=== PATIENT | female | born 1985 ===

== ENCOUNTER 2022-03-26 11:19 | Outpatient (CLI) | payer OTHER | END 2022-03-26 12:35 | disposition home or self-care (01) | LOC: PRENATAL 11:19 | PROVIDERS: ATTEND Obstetrics & Gynecology Maternal & Fetal Medicine | DX: O35.0XX0 Maternal care for (suspected) central nervous system malformation in fetus, not applicable or unspecified (principal); O35.3XX0 Maternal care for (suspected) damage to fetus from viral disease in mother, not applicable or unspecified; O34.219 Maternal care for unspecified type scar from previous cesarean delivery; Z3A.24 24 weeks gestation of pregnancy ==

== ENCOUNTER 2022-05-20 10:22 | Outpatient (CLI) | payer OTHER | END 2022-05-20 12:15 | disposition home or self-care (01) | LOC: PRENATAL 10:22 | PROVIDERS: ATTEND Obstetrics & Gynecology Maternal & Fetal Medicine | DX: O26.849 Uterine size-date discrepancy, unspecified trimester (principal); O35.9XX0 Maternal care for (suspected) fetal abnormality and damage, unspecified, not applicable or unspecified; O09.529 Supervision of elderly multigravida, unspecified trimester; O34.219 Maternal care for unspecified type scar from previous cesarean delivery; Z3A.32 32 weeks gestation of pregnancy ==

== ENCOUNTER 2022-07-02 08:45 | Inpatient (IN) | payer OTHER ==
[~2022-07-02] VITALS: Ht 172.7 cm; Wt 3.6 kg
[2022-07-08] MEDS ORDERED: PRENATAL + DHA1 EAC1 (08:03)
== END 2022-07-10 14:29 | disposition home or self-care (01) | DRG 785 ==
LOC: OB/GYN 07-08 05:30 → O/R 07-08 05:30 → OB/GYN 07-08 07:00
PROVIDERS: ADMIT Obstetrics & Gynecology; ATTEND Obstetrics & Gynecology
PROC: 0UB70ZZ Excision of Bilateral Fallopian Tubes, Open Approach (ICD-10-PCS; 2022-07-08)
PROC: 4A1HXCZ Monitoring of Products of Conception, Cardiac Rate, External Approach (ICD-10-PCS; 2022-07-08)
PROC: 10D00Z1 Extraction of Products of Conception, Low, Open Approach (ICD-10-PCS; principal; 2022-07-08 07:00)
DX: O36.63X0 Maternal care for excessive fetal growth, third trimester, not applicable or unspecified (principal); O34.211 Maternal care for low transverse scar from previous cesarean delivery; Z3A.39 39 weeks gestation of pregnancy; Z37.0 Single live birth; Z30.2 Encounter for sterilization